=== PATIENT | male | born 1985 | race Caucasian/White ===

== ENCOUNTER 2021-05-07 15:20 | Emergency (ER) | payer OTHER ==
[~2021-05-07] VITALS: Ht 172.7 cm; Wt 79.4 kg
--- NOTE | ~2021-05-07 | EMS ---
[address] [address] EMS Patient Care Report Name: CLOVER RODRIGUEZ Room #: DEP SCOTT Peterson#: [id number] Admission: 05/07/21 Attend Phys: Discharge: 05/07/21 Date of : [birth year] Report #: [id number] THIS REPORT FOR: //name// Report Transmitted: 05/08/2021 07:59 EMS Care Summary [place], [place]/[facility] Incident [id number] @ 05/07/2021 14:46 Incident Location [address] [place] [address] 2nd [place] [address] Patient CLOVER RODRIGUEZ Male, 35 Years 1985 Patient Address [address] [place] [address] Patient History Seizures, Patient Allergies No known allergies, Patient Medications Zonegran, Chief Complaint SEIZURE Disposition Transported No Lights/[place] Dispatch Reason Convulsions/Seizure Transported To [facility] Narrative ARRIVED ON THE SCENE TO FIND PATIENT CONSCIOUS AND BREATHING, LAYING ON THE HALLWAY FLOOR. STAFF STATE THAT THE HEARD MOANING, AND WALKED AROUND THE CORNER TO FIND THE PATIENT ON THE FLOOR SEIZING. STAFF DESCRIBE THE SEIZURE GRAND [address] [address] EMS Patient Care Report Name: CLOVER RODRIGUEZ Room #: DEP SCOTT Peterson#: [id number] Admission: 05/07/21 Attend Phys: Discharge: 05/07/21 Date of : [birth year] Report #: [id number] MAL SEIZURE. PATIENT IS ALERT AND TRACKING EMS UPON OUR ARRIVAL. EMS ASKS PATIENT IF HE HAD EPILEPSY, TO WHICH PATIENT REPLIES, "YES." PATIENT DENIES ANY NECK OR BACK PAIN. PATIENT DENIES HEADACHE. PATIENT ASSISTED TO THE SEATED POSITION. PATIENT STATES THAT HE IS COMPLAINT WITH HIS MEDICATIONS, BUT ALSO STATES THAT HE HAD A SEIZURE THIS MORNING AROUND 1AM. PATIENT STATES THAT HE RECENTLY CHANGED MEDICATIONS, DUE TO THE COST OF HIS LAST ONE. PATIENT STATES THAT HE WAS ON VIMPAT, BUT STATES THAT NOW HE TAKE ZONEGRAN. PATIENT STATES THAT VIMPAT DID SEEM TO CONTROL HIS SEIZURES BETTER, BUT STATES THAT THE MEDICATION WAS $900 DOLLARS A MONTH. PATIENT AGREES TO TRANSPORT TO THE HOSPITAL VIA AMBULANCE. PATIENT ASSISTED TO HIS FEET, AND MOVED TO STRETCHER USING STAND AND PIVOT. PATIENT THEN SECURED TO STRETCHER AND LOADED INTO AMBULANCE. PATIENT STATES THAT THIS IS VERY EMBARRASSING. PATIENT STATES THAT HE DOES NOT KNOW WHY HIS SEIZURES ARE INCREASING. PATIENT DENIES CHEST PAIN, PRESSURE OR HEAVINESS. PATIENT DENIES SHORTNESS OF BREATH. PATIENT DENIES ABDOMINAL PAIN, NAUSEA OR VOMITING. PATIENT TRANSPORTED TO [facility] WITHOUT INCIDENT. PATIENT CARE REPORT GIVEN TO QUIN HAIDER. M551 RETURNED TO SERVICE. Initial Vitals @15:14P: 96,R: 16,BP: 138/94,Pain: 0/10,SpO2: 98, @14:56P: 110,R: 18,BP: 99/64,Pain: 0/10,GCS: 14,Glucose: 99,SpO2: 99,Revised Trauma: 12, Assessments @14:55MENTAL:Time Oriented,Person Oriented,Place Oriented,Confused,SKIN:HEENT:Head/Face: No Abnormalities,Neck/Airway: No Abnormalities,LUNG SOUNDS:General: No Abnormalities,ABDOMEN:General: No Abnormalities,PELVIS//GI:EXTREMITIES:Capillary Refill: Right Upper: < 2 Sec,Capillary Refill: Left Upper: < 2 Sec,Right Arm: Other,Left Arm: No Abnormalities,Left Leg: No Abnormalities,Right Leg: No Abnormalities,PULSE:Radial: 2+ Normal,NEURO:No Abnormalities, Impression Seizures Procedures @14:55ALS AssessmentResponse: UnchangedSucceeded@15:13Saline Lock 5cc (20 ga) Site: Antecubital-RightResponse: UnchangedSucceeded@15:10StretcherResponse: Unchanged@14:56Oxygen FlowRate: 2 Device: Nasal Cannula (NC) Response: ImprovedSucceeded Timeline 14:43,Call Received 14:43,Dispatch Notified 14:46,Dispatched 14:46,En Route [address] [address] EMS Patient Care Report Name: CLOVER RODRIGUEZ Room #: [facility] SCOTT Peterson#: [id number] Admission: 05/07/21 Attend Phys: Discharge: 05/07/21 Date of : 89 Report #: [id number] 14:52,On Scene 14:55,At Patient 14:55,ALS Assessment,Response: UnchangedSucceeded, 14:56,Oxygen FlowRate: 2 Device: Nasal Cannula (NC) Response: ImprovedSucceeded, 14:56,BP: 99/64 M,PULSE: 110,RR: 18 R,SPO2: 99 Ox,ETCO2: ,B,PAIN: 0,GCS: 14, 14:57,Depart Scene 15:10,Stretcher,Response: Unchanged 15:13,Saline Lock 5cc 20 ga Site: Antecubital-Right,Response: UnchangedSucceeded, 15:14,BP: 138/94 M,PULSE: 96,RR: 16 R,SPO2: 98 Ox,ETCO2: ,BG: ,PAIN: 0,GCS: , 15:16,At Destination 15:47,Call Closed Disclaimer v1.1 Copyright 2020 [employer] This EMS Care Summary contains data elements from the applicable legal record (which may be displayed differently). It is designed to provide pertinent information for the following purposes: continuity of care, clinical quality, and state data reporting. The complete legal record is available to ED staff and administrators of the receiving hospital in [employer]'s Patient Tracker. All data is provided "as is."
[~2021-05-07 15:20] MED LIST: NOHOMEMEDICATIONS
[2021-05-07] MEDS ORDERED: ZONEGRAN100 MG PO (15:38)
[2021-05-07 16:08] LABS: HEMOGLOBIN 15.5 gm/dL (14.0-18.0); MCH 32.2 pg (26.0-34.0); MCHC 34.6 g/dL (28.0-37.0); WBC 5.7 thou/uL (4.0-11.0)
[2021-05-07 16:10] LABS: ABSOLUTE NEUTROPHILS 3.7 thou/uL (1.4-8.2); BASOPHILS 0.3 % (0.0-2.0); CALCIUM 8.3 mg/dL (8.5-10.1); CREATININE 1.4 mg/dL (0.7-1.3); EOSINOPHILS 0.6 % (0.0-3.0); LYMPHOCYTES 27.1 % (24.0-44.0); MCV 93.2 fL (80.0-100.0); MONOCYTES 6.1 % (1.0-8.0); PLATELET COUNT 206 thou/uL (150-400); POLYS 65.9 % (36.0-66.0); POTASSIUM 3.9 mmol/L (3.5-5.1); RBC 4.82 mil/uL (4.50-6.00); RDW 12.9 % (10.5-14.5)
[2021-05-07 17:41] VITALS: BP 108/64
== END 2021-05-07 17:44 | disposition home or self-care (01) ==
LOC: ER 15:20
PROVIDERS: Nurse Practitioner
DX: G40.802 Other epilepsy, not intractable, without status epilepticus (principal); F41.9 Anxiety disorder, unspecified; F32.9 Major depressive disorder, single episode, unspecified; Z79.899 Other long term (current) drug therapy